=== PATIENT | female | born 1990 | race Caucasian/White ===

== ENCOUNTER 2018-07-25 15:10 | Emergency (ER) | payer OTHER ==
[~2018-07-25] VITALS: Ht 167.6 cm; Wt 65.8 kg
[~2018-07-25 15:10] MED LIST: CODACE30 PO; HYDACE5 PO; LORA.5 PO; RXCODACET PO; TRAZ50 PO
[2018-07-25] MEDS ORDERED: BIRTH CONTROL (15:21)
[2018-07-25] MEDS ORDERED: Percocet 5-3251 EACH PO (16:54)
== END 2018-07-25 17:06 | disposition home or self-care (01) ==
LOC: ER 15:10
DX: S09.90XA Unspecified injury of head, initial encounter (principal); S13.4XXA Sprain of ligaments of cervical spine, initial encounter; S93.401A Sprain of unspecified ligament of right ankle, initial encounter; V80.010A Animal-rider injured by fall from or being thrown from horse in noncollision accident, initial encounter
CPT/HCPCS: 72040; 73610; 73630; 99284-25